=== PATIENT | female | born 1955 | race Caucasian/White ===

== ENCOUNTER → 2017-07-17 | Outpatient (CLI) | payer BC ==
[~2017-07-17] MED LIST: ACETAMINOPHEN 500 MG TABLET PO ONE; DIAZEPAM 10 MG TABLET. ONE; IOHEXOL 350 MG/ML 100 ML VIAL. ONE; IOHEXOL 350 MG/ML 50 ML VIAL. ONE; IV NORMAL SALINE 500ML BAG 500 ML ONE; LIDOCAINE 1% Multi-Dose 20 ML VIAL. ONE; MIDAZOLAM HCL/PF 2 MG/2 ML VIAL. ONE; fentaNYL PF VIAL 100 MCG/2 ML VIAL ONE
--- NOTE | 2017-07-20 08:34 | PCVCINTER ---
APPROVED REPORT Patient Details Patient Status: Out-Patient Room #: 3 The patient is a 61 year-old Female Event Personnel Messi Diaz MD, Yisel Kearns RT(R), Kin Vazquez RT(R)(), Quentin Miguel RN Risk Factors Arterial HypertensionDysplipidemia (Type: 1)Obesity, Family History, HypercholesterolemiaPhysical Activity, Last Creatanine 1.1Tobacco History (Former) Previous Procedures/Diagnoses Previous Femoral Procedure, Hypertension, Sleep apnea Procedure Narrative The patient was brought electively to the Cardiac Catheterization Laboratory and was prepped and draped in a sterile manner. The right femoral was infiltrated with 1% Lidocaine subcutaneous anesthesia. A 6fr sheath was inserted into the right femoral artery. Coronary angiography was performed using coronary diagnostic catheters. The right coronary system was accessed and visualized with a JR4 Diagnostic catheter. The left coronary system was accessed and visualized with a JL4 Diagnostic catheter. The left ventricle was accessed and visualized with a Pig tail Diagnostic catheter. Left ventriculogram was performed in SEVILLA projection. An aortogram of the abdominal aorta was performed. Pre-demployment femoral angiogram was performed . Closure device was deployed with a 6 Fr Mynx. Hemostasis was obtained with manual pressure following sheath removal without any complications. The patient tolerated the procedure well and there were no complications associated with the procedure. There was no hematoma. Hemodynamics The aortic pressure is 114/58 mmHg with a mean of 80 mmHg. The left ventricular pressure is 117/5 mmHg with a mean of 9 mmHg. Conclusion #1 normal left ventricular size and systolic function EF 60% #2 normal abdominal aorta single bilateral renal arteries widely patent no aneurysm is noted #3 left main free of disease giving rise to LAD and circumflex #4 LAD extends around the apex there is minimal irregularity no occlusive disease #5 circumflex OM nondominant but moderate size widely patent #6 dominant right coronary artery with mild mid vessel irregularity 20-30% giving rise to PDA and CHAS. No occlusive disease Recommendations and plan or continue aggressive risk factor modification no lifting for 48 hours no line tub Jacuzzi or Donohue for a week
== END | disposition home or self-care (01) ==
LOC: PCVCINTER 11:00
PROVIDERS: ATTEND Internal Medicine Cardiovascular Disease
DX: R94.39 Abnormal result of other cardiovascular function study (principal); E78.00 Pure hypercholesterolemia, unspecified; E78.5 Hyperlipidemia, unspecified; E66.9 Obesity, unspecified; I10 Essential (primary) hypertension
CPT/HCPCS: 75625; 93458; 99152; 99153; C1751; C1760; C1769; C1894; J1644; J2250; J3010; J7040; Q9967